=== PATIENT | male | born 1975 | race Hispanic/Latino ===

== ENCOUNTER 2020-01-29 18:07 | Emergency (ER) | payer SELFPAY ==
--- NOTE | 2020-01-29 20:09 | Event Note ---
ED Screening Note Date of service: 01/29/20 Time: 20:08 ED Screening Note: This is a 44-year-old male presents the ED complaining of right-sided abdominal pain radiating to his groin area that began 4 hours ago This initial assessment/diagnostic orders/clinical plan/treatment(s) is/are subject to change based on patients health status, clinical progression and re- assessment by fellow clinical providers in the ED. Further treatment and workup at subsequent clinical providers discretion. Patient/guardian urged not to elope from the ED as their condition may be serious if not clinically assessed and managed. Initial orders include: ua,kub
--- NOTE | 2020-01-29 20:51 | XRay Report ---
ABDOMEN 1 VIEW(S) INDICATION / CLINICAL INFORMATION: abd pain. COMPARISON: None available. FINDINGS: TUBES / LINES: None. BOWEL GAS PATTERN/EXTRALUMINAL GAS: No significant abnormality. No pneumatosis or secondary signs of free air. ADDITIONAL FINDINGS: Multiple surgical clips projecting over the abdomen appear to be from previous h ernia repair. IMPRESSION: 1. No significant abnormality. Signer Name: Luis Morgan MD Signed: 01/29/2020 8:46 PM Workstation Name: [id number]
[2020-01-29 20:55] LABS: Basophils # (Auto) 0.1 K/mm3 (0.0-0.1); Basophils % (Auto) 1.1 % (0.0-1.8); Eosinophils # (Auto) 0.3 K/mm3 (0.0-0.4); Eosinophils % (Auto) 4.8 % (0.0-4.3); Hematocrit 35.3 % (35.5-45.6); Hemoglobin 11.3 gm/dl (11.8-15.2); Lymphocytes % (Auto) 31.1 % (13.4-35.0); Mean Corpuscular HGB Conc 32 % (32-34); Monocytes # (Auto) 0.6 K/mm3 (0.0-0.8); Platelet Count 292 K/mm3 (140-440); Red Blood Count 5.13 M/mm3 (3.65-5.03); Red Cell Distribution Width 15.3 % (13.2-15.2)
[2020-01-29 20:57] LABS: Mean Corpuscular Volume 69 fl (84-94)
[2020-01-29 21:00] LABS: Alanine Aminotransferase 45 units/L (7-56); Albumin 4.6 g/dL (3.9-5); BUN/Creatinine Ratio 15; Blood Urea Nitrogen 16 mg/dL (9-20); Calcium 8.8 mg/dL (8.4-10.2); Hemolysis Index 12
[2020-01-29 21:14] LABS: Bilirubin,Urine NEG (Negative); Blood,Urine MOD (Negative); Color,Urine Yellow (Yellow); Mucus,Urine FEW /HPF; Protein,Urine <15 mg/dL mg/dL (Negative)
[2020-01-29] MEDS ORDERED: HYDROmorphone 1 MG/1 ML INJ IV ONE (23:01)
[2020-01-29] MEDS ORDERED: ONDANSETRON 4 MG/2 ML INJ IV ONE (23:01)
[2020-01-29] MEDS ORDERED: SODIUM CHLORIDE 0.9% 1000 ML 1,000 ML IV ONE (23:01)
--- NOTE | 2020-01-29 23:01 | Emergency Department Report ---
ED Abdominal Pain HPI - General Chief Complaint: Abdominal Pain Stated Complaint: RIGHT SIDE PAIN PUI?: No Time Seen by Provider: 01/29/20 22:58 Source: patient Mode of arrival: Ambulatory Limitations: No Limitations - History of Present Illness Initial Comments: Patient is a 44-year-old male that presents emergency room with right lower quadrant abdominal pain that radiates to his groin. Patient states the pain started today. Patient states it was started approximately 12 hours ago. Patient states the pain is a 10 out of 10. Patient states the pain is worse with movement and better with rest. Patient states the pain is also worse with palpation. Patient states he has a past medical history of hepatitis C for which he took the treatment for and is in remission. Patient states that he also had his gallbladder removed but he still has his appendix. Patient states he is nauseated but has no vomiting. Patient denies recent travel. Patient denies recent international travel. Patient denies exposure to the novel coronavirus. Patient denies sick contacts. Patient denies fever and chills. Patient denies cough. Patient denies diarrhea. Patient denies coming in contact with anybody with symptoms of the n ovel coronavirus. MD Complaint: abdominal pain -: Sudden Location: RLQ Radiation: none Migration to: no migration Severity: severe Severity scale (0 -10): 10 Quality: stabbing Consistency: constant Improves With: rest Worsens With: movement, other (Palpation) Associated Symptoms: nausea. denies: vomiting, diarrhea, fever, chills, constipation, dysuria, hematemesis, hematochezia, melena, hematuria, syncope - Related Data Previous Rx's Medication Instructions Recorded Last Taken Type Acetaminophen/Codeine [Tylenol 1 tab PO Q6H PRN #10 tab 01/30/20 Unknown Rx /Codeine # 3 tab] Allergies Allergy/AdvReac Type Severity Reaction Status Date / Time aspirin Allergy Unknown Verified 01/29/20 18:20 Penicillins Allergy Anaphylaxis Verified 01/29/20 18:19 ED Review of Systems ROS: Stated complaint: RIGHT SIDE PAIN Other details as noted in HPI Constitutional: denies: chills, fever Eyes: denies: eye pain, eye discharge, vision change ENT: denies: ear pain, throat pain Respiratory: denies: cough, shortness of breath, wheezing Cardiovascular: denies: chest pain, palpitations Endocrine: no symptoms reported Gastrointestinal: as per HPI, abdominal pain, nausea. denies: vomiting, diarrh ea Genitourinary: denies: urgency, dysuria Musculoskeletal: denies: back pain, joint swelling, arthralgia Skin: denies: rash, lesions Neurological: denies: headache, weakness, paresthesias Psychiatric: denies: anxiety, depression Hematological/Lymphatic: denies: easy bleeding, easy bruising ED Past Medical Hx - Past Medical History Previous Medical History?: Yes Additional medical history: Hepatitis C -treated - Surgical History Past Surgical History?: Yes Hx Cholecystectomy: Yes - Family History Family history: no significant - Social History Smoking Status: Current Every Day Smoker Substance Use Type: Alcohol - Medications Home Medications: Home Medications Medication Instructions Recorded Confirmed Last Taken Type Acetaminophen/Codeine [Tylenol 1 tab PO Q6H PRN #10 tab 01/30/20 Unknown Rx /Codeine # 3 tab] ED Physical Exam - General Limitations: No Limitations General appearance: alert, in no apparent distress - Head Head exam: Present: atraumatic, normocephalic - Eye Eye exam: Present: normal appearance - ENT ENT exam: Present: mucous membranes moist - Neck Neck exam: Present: normal inspection - Respiratory Respiratory exam: Present: normal lung sounds bilaterally. Absent: respiratory distress - Cardiovascular Cardiovascular Exam: Present: regular rate, normal rhythm. Absent: systolic murmur, diastolic murmur, rubs, gallop - GI/Abdominal GI/Abdominal exam: Present: soft, tenderness (Right lower quadrant tenderness to palpation), normal bowel sounds - Rectal Rectal exam: Present: deferred - Extremities Exam Extremities exam: Present: normal inspection - Back Exam Back exam: Present: normal inspection - Neurological Exam Neurological exam: Present: alert, oriented X3 - Psychiatric Psychiatric exam: Present: normal affect, normal mood - Skin Skin exam: Present: warm, dry, intact, normal color. Absent: rash ED Course Vital Signs 01/29/20 01/29/20 01/29/20 18:13 23:04 23:05 Temperature 98.6 F 98.4 F Pulse Rate 72 62 71 Respiratory 16 19 18 Rate Blood Pressure 133/74 Blood Pressure 113/84 [Left] O2 Sat by Pulse 97 100 100 Oximetry 01/29/20 01/30/20 01/30/20 23:15 00:35 00:51 Temperature Pulse Rate 75 62 Respiratory 18 20 20 Rate Blood Pressure 135/78 Blood Pressure 143/90 [Left] O2 Sat by Pulse 98 98 Oximetry - Reevaluation(s) Reevaluation #1: I discussed all results and clinical findings with patient. I discussed plan of care with patient. Patient agrees with plan of care. Patient is stable for discharge. Patient will be discharged home. Patient given discharge instructions. Patient voiced understanding of discharge instructions. 01/30/20 00:16 ED Medical Decision Making - Lab Data Result diagrams: 01/29/20 20:28 01/29/20 20:28 - Radiology Data Radiology results: report reviewed, image reviewed CT OF THE ABDOMEN AND PELVIS WITH INTRAVENOUS CONTRAST INDICATION / CLINICAL INFORMATION: Right lower quadrant pain radiating to the groin for 12 hours. TECHNIQUE: The patient received 100 cc Omnipaque [address] scans at this location are performed using CT dose reduction for ALARA by means of automated exposure control. COMPARISON: None available. FINDINGS: ABDOMEN: The gallbladder is surgically absent. The liver, spleen, bile ducts, pancreas, adrenal glands, kidneys and bowel demonstrate no significant abnormality. There are surgical changes involving the anterior abdominal wall characteristic of prior hernia repair with mesh. No significant recurrent hernia is seen. There is no evidence of adenopathy. The lung bases are clear. PELVIS: The distal ureters, urinary bladder and prostate gland are normal. A normal appendix is present and there is no evidence of diverticulitis. No abnormal mass or fluid collection is seen. I do not identify a hernia. No acute osseous abnormality is identified. IMPRESSION: No acute abnormality. ABDOMEN 1 VIEW(S) INDICATION / CLINICAL INFORMATION: abd pain. COMPARISON: None available. FINDINGS: TUBES / LINES: None. BOWEL GAS PATTERN/EXTRALUMINAL GAS: No significant abnormality. No pneumatosis or secondary signs of free air. ADDITIONAL FINDINGS: Multiple surgical clips projecting over the abdomen appear to be from previous hernia repair. IMPRESSION: 1. No significant abnormality. - Medical Decision Making Patient is a 44-year-old male that presents emergency room with complaints of right lower quadrant pain. Patient's pain was severe. Patient given pain medications and fluids in the ER. Patient's labs are unremarkable. Due to the amount of pain in the right lower quadrant, a CT was done. CT was negative for acute intra-abdominal findings. Patient's clinical findings are consistent with a groin strain and right lower quadrant pain. Patient is stable for discharge. Patient discharged home. Patient discharged home with pain medications. - Differential Diagnosis Right lower quadrant pain, appendicitis, muscle strain, groin strain Critical care attestation.: If time is entered above; I have spent that time in minutes in the direct care of this critically ill patient, excluding procedure time. ED Disposition Clinical Impression: RLQ abdominal pain, Right groin pain Groin strain Qualifiers: Encounter type: initial encounter Laterality: right Qualified Code(s): S76.211A - Strain of adductor muscle, fascia and tendon of right thigh, initial encounter Disposition: TO HOME OR SELFCARE Is pt being admited?: No Does the pt Need Aspirin: No Condition: Stable Instructions: Acute Abdominal Pain (ED), Groin Strain (ED), Abdominal Pain (ED), Groin Pain (ED) Additional Instructions: Patient to follow-up with primary care in 2 to 3 days. Patient to follow-up with orthopedist in 2 to 3 days. Patient to rest. Patient to increase water. Patient to avoid strenuous exercise or heavy lifting until cleared by orthopedist or primary care. Patient to take Tylenol or ibuprofen as needed for pain. Patient to take meds as directed. Patient to return to the ER if condition worsens, changes or new symptoms arise. [facility] Prescriptions: Acetaminophen/Codeine [Tylenol /Codeine # 3 tab] 1 tab PO Q6H PRN #10 tab PRN Reason: Pain , Severe (7-10) Referrals: PRIMARY MD TJ [Primary Care Provider] - 2-3 Days ABDULLAHI UNDERWOOD MD [Staff Physician] - 2-3 Days Time of Disposition: 00:15
--- NOTE | 2020-01-29 23:53 | Cat Scan Report ---
CT OF THE ABDOMEN AND PELVIS WITH INTRAVENOUS CONTRAST INDICATION / CLINICAL INFORMATION: Right lower quadrant pain radiating to the groin for 12 hours. TECHNIQUE: The patient received 100 cc Omnipaque [address] scans at this location are performed using CT dose reduction for ALARA by means of automated exposure control. COMPARISON: None available. FINDINGS: ABDOMEN: The gallbladder is surgically absent. The liver, spleen, bile ducts, pancreas, adrenal gland s, kidneys and bowel demonstrate no significant abnormality. There are surgical changes involving the anterior abdominal wall characteristic of prior hernia repair with mesh. No significant recurrent he rnia is seen. There is no evidence of adenopathy. The lung bases are clear. PELVIS: The distal ureters, urinary bladder and prostate gland are normal. A normal appendix is prese nt and there is no evidence of diverticulitis. No abnormal mass or fluid collection is seen. I do not identify a hernia. No acute osseous abnormality is identified. IMPRESSION: No acute abnormality. Signer Name: Edson Hidalgo MD Signed: 01/29/2020 11:49 PM Workstation Name: [id number]
[2020-01-30 00:52] VITALS: BP 143/90
== END 2020-01-30 00:53 | disposition home or self-care (01) ==
LOC: ED 18:07
DX: R10.31 Right lower quadrant pain (principal)
CPT/HCPCS: 36415; 74018; 74177; 80053; 81001; 85025; 96374; 96375; 99284; J1170; J2405; J7030; Q9967